=== PATIENT | male | born 1980 | race Caucasian/White ===

== ENCOUNTER → 2017-03-25 | Outpatient (CLI) | payer BC ==
--- NOTE | 2017-03-25 08:20 | DIAGNOSTIC IMAGING REPORT ---
ABDOMEN LIMITED (US) HISTORY: 36 years-old Male ELEVATED LFT'S COMPARISON: None available TECHNIQUE: Multiple real-time sonographic images of the abdominal right upper quadrant were obtained assessing grayscale appearance and color flow FINDINGS: The imaged pancreas is unremarkable with the majority of the pancreatic body and tail obscured by bowel gas. Increased echogenicity with poor through transmission of the liver suggests fatty infiltration. No focal hepatic mass lesion or intrahepatic biliary ductal dilation identified. Common bile duct is normal, 3 mm. Ill-defined area of decreased echogenicity, 1.7 cm is seen adjacent to the shimon hepatis suggesting areas of fatty sparing. Gallbladder is within normal limits without wall thickening, shadowing cholelithiasis or pericholecystic fluid. The right kidney demonstrates no hydronephrosis. Mild prominence of the renal pelvis is likely physiologic. IMPRESSION: 1. Increased echogenicity of the liver suggests hepatic steatosis. 2. No biliary ductal dilation. 3. No cholelithiasis or sonographic evidence of acute cholecystitis. The above report was generated using voice recognition software. It may contain grammatical, syntax or spelling errors. Electronically signed by: Ganesh Curtis M.D. 03/25/2017 8:19 AM Dictated Date/Time: 03/25/2017 8:15 AM
== END | disposition home or self-care (01) ==
LOC: C.ULTRBC 07:54
PROVIDERS: ATTEND Family Medicine
DX: R79.89 Other specified abnormal findings of blood chemistry (principal)

== ENCOUNTER 2018-05-15 17:44 | Observation (INO) ==
[2018-05-15] MEDS ORDERED: MoRPHine SULFATE 4 MG/ML 1 ML CARP\\VIAL IV STA (18:51)
[2018-05-15] MEDS ORDERED: SODIUM CHLORIDE 0.9% 1000ML 1,000 ML IV SCH ×2 (19:00→23:45)
[2018-05-15 19:54] LABS: Basophils # (auto) 0.01 K/uL (0-0.2); Basophils % (auto) 0.1 %; Eosinophils # (auto) 0.04 K/uL (0-0.5); Eosinophils % (auto) 0.5 %; Hematocrit (blood only) 41.7 % (42-52); Hemoglobin 15.1 g/dL (14.0-18.0); Immature Granulocytes # (auto) 0.02 K/uL (0.00-0.02); Immature Granulocytes % (auto) 0.3 %; Lymphocytes # (auto) 1.48 K/uL (1.2-3.4); Lymphocytes % (auto) 19.9 %; Mean Corpuscular Hgb Conc 36.2 g/dL (32-36); Mean Corpuscular Volume 88.2 fL (80-100); Mean Platelet Volume 10.2 fL (7.4-10.4); Monocytes # (auto) 0.53 K/uL (0.11-0.59); Monocytes % (auto) 7.1 %; Neutrophils # (auto) 5.34 K/uL (1.4-6.5); Neutrophils % (auto) 72.1 %; Platelet Count 161 K/uL (130-400); RDW Coefficient of Variation 13.1 % (11.5-14.5); RDW Standard Deviation 42.1 fL (36.4-46.3); Red Blood Count 4.73 M/uL (4.7-6.1); White Blood Count 7.42 K/uL (4.8-10.8)
[2018-05-15 20:07] LABS: iSTAT Creatinine 0.8 mg/dl (0.6-1.3); iSTAT Hemoglobin 14.6 g/dl (14.0-18.0); iSTAT Ionized Calcium 1.2 mmol/l (1.12-1.32); iSTAT Potassium 3.9 mEq/L (3.3-5.0)
[2018-05-15 20:10] LABS: Appearance Urine Clear (Clear); Bilirubin Urine Negative (Negative); Blood Urine Negative (Negative); Color Urine Yellow; Glucose Urine UA 3+ (Negative); Ketones Urine Trace (Negative); Leukocyte Esterase Urine Negative (Negative); Nitrite Urine Negative (Negative); Protein Urine Negative (Negative); Specific Gravity Urine 1.036 (1.000-1.030); Urobilinogen Urine Negative (Negative)
[2018-05-15 20:12] LABS: Albumin Globulin Ratio 1.1 (0.9-2); Albumin Level 4.2 gm/dl (3.4-5.0); Bilirubin,Total 0.7 mg/dl (0.2-1); Calcium 8.8 mg/dl (8.5-10.1); Creatinine Clr Calc Pharmacy 123.4 ml/min; Est GFR (African American) 98.2; Est GFR (Non-African American) 84.7; Globulin 3.9 gm/dl (2.5-4.0); Potassium 3.8 mmol/L (3.5-5.1); Total Protein 8.1 gm/dl (6.4-8.2)
[2018-05-15 20:27] LABS: Beta-Hydroxybutyrate 1.57 mg/dl (0.2-2.81)
[2018-05-15] MEDS ORDERED: IOVERSOL 100ml IV PRN (20:36)
[2018-05-15] MEDS ORDERED: NovoLIN-R INSULIN PER UNIT CHARGE IV STA (20:58)
--- NOTE | 2018-05-15 21:04 | CT Scan Report ---
CT pelvis w/IV con only CLINICAL HISTORY: rectal abscess COMPARISON STUDY: No previous studies for comparison. TECHNIQUE: Axial images of the pelvis were obtained following intravenous injection of 93 cc of Optir ay 320 IV. Study was performed utilizing automated exposure control for dose reduction. Study was per formed utilizing ALARA principles. FINDINGS: Caliber of visualized small and large bowel are normal. The appendix is normal. There is no pelvic lymphadenopathy. No suspicious lesions are identified within visualized skeletal structures. Note is made of grade one anterolisthesis of L5 on S1 due to bilateral L5 pars defects. Note is made of a midline posterior perianal fluid collection measures 2.4 x 1.1 cm. There is mild adjacent infilt ration. There is no soft tissue gas. No additional fluid collections are present. IMPRESSION: Midline posterior perianal fluid collection, measuring 2.4 x 1.1 cm, consistent with a s mall perianal abscess with mild associated cellulitis. Electronically signed by: Lazarus Rivas M.D. 05/15/2018 9:03 PM
[2018-05-15] MEDS ORDERED: BACITRACIN OINT 15 GM TUBE ONE (22:07)
[2018-05-15] MEDS ORDERED: LIDOCAINE HCL 1% 20 ML VIAL ONE (22:08)
[2018-05-15] MEDS ORDERED: BUPIVACAINE 0.5 % 5 MG/1 ML MPF 30ML VIAL ONE (22:08)
[2018-05-15] MEDS ORDERED: metroNIDAZOLE 500 MG/100 ML BAG IV STA ×2 (22:10→22:11)
[2018-05-15] MEDS ORDERED: cefTRIAXone SODIUM 1,000 MG/50 ML BAG IV STA (22:11)
--- NOTE | 2018-05-15 22:11 | Emergency Department Note ---
Entered by Aaron Rojas acting as a scribe for Edin Amaral DO History of Present Illness General Chief complaint: Infection, Wound Stated complaint: ABSCESS ON CENTER OF BUTTOCKS Source: patient History of Present Illness Onset (ago): day(s) 3 Location: buttocks (near rectum) Pain Consistency: + constant Maximum Pain Intensity: 5 Quality: + other (boil) Exacerbated By: + other (sitting) Associated symptoms: no fever/chills and no nausea/vomiting The patient is a 37 year old male who presents to the Emergency Room with complaints of a boil located near the rectum beginning three days ago. The patient reports that the boil is now the size of a golf ball. He rates his pain as constant at 5/10 and states that it is exacerbated with sitting. He denies fevers, nausea, vomiting, diarrhea, or other symptoms. He reports that he recently had a fistulotomy performed in [place], and he had a follow up with Dr. [facility] last week and was fine at the time. He states that the current boil is in a different spot from his recent fistulotomy. No other exacerbating or remitting factors. Home Medications Home Medications Medication Instructions Recorded Confirmed Type allopurinol 300 mg PO DAILY 05/15/18 05/15/18 History atorvastatin 10 mg PO DAILY 05/15/18 05/15/18 History cholecalciferol (vitamin D3) 1 dose PO DAILY 05/15/18 05/15/18 History [Vitamin D3] levothyroxine 125 mcg PO DAILY 05/15/18 05/15/18 History losartan 50 mg PO DAILY 05/15/18 05/15/18 History metformin 1,000 mg PO QAM 05/15/18 05/15/18 History metformin 500 mg PO QPM 05/15/18 05/15/18 History sertraline 50 mg PO DAILY 05/15/18 05/15/18 History vitamin E 400 units PO DAILY 05/15/18 05/15/18 History Allergies Allergy/AdvReac Type Severity Reaction Status Date / Time No Known Allergies Allergy Verified 05/15/18 21:24 Past Med/Surg History Medical History Fistula Social History Preferred Language: Georgian Feels Safe at Home: Yes Smoking Status: Current some day smoker Review of Systems See HPI for pertinent positives & negatives. and A total of 10 systems reviewed and were otherwise negative Physical Exam Vital Signs Vital Signs - 24 hr 05/15/18 18:07 05/15/18 19:48 05/15/18 19:52 Temperature 37.1 C Temperature Source Oral Sepsis Recent Fever Within 48 Hours No Sepsis New/Unexplained Change in Mental Status No Sepsis Action Taken by Nursing No Action Required Pulse Rate 80 80 Pulse Rate [Apical] 87 Pulse Rate from SpO2 Sensor Pulse Rhythm Regular Regular Pulse Rhythm [Apical] Regular Pulse Strength Normal Pulse Strength [Apical] Normal Respiratory Rate 20 19 19 Respiratory Effort / Characteristics Non-Labored Spontaneous Non-Labored Spontaneous Respiratory Depth Normal Normal Respiratory Pattern Regular Regular Blood Pressure 150/89 H Blood Pressure [Left Arm] 141/68 H Blood Pressure Mean 109 Blood Pressure Mean [Left Arm] 92 Blood Pressure Position Sitting Blood Pressure Position [Left Arm] Lying Pulse Oximetry 99 98 98 Oxygen Delivery Method Room Air Room Air Room Air 05/15/18 21:01 Temperature Temperature Source Sepsis Recent Fever Within 48 Hours Sepsis New/Unexplained Change in Mental Status Sepsis Action Taken by Nursing Pulse Rate 89 Pulse Rate [Apical] Pulse Rate from SpO2 Sensor 90 Pulse Rhythm Pulse Rhythm [Apical] Pulse Strength Pulse Strength [Apical] Respiratory Rate 17 Respiratory Effort / Characteristics Respiratory Depth Respiratory Pattern Blood Pressure 117/49 L Blood Pressure [Left Arm] Blood Pressure Mean 71 Blood Pressure Mean [Left Arm] Blood Pressure Position Blood Pressure Position [Left Arm] Pulse Oximetry 95 Oxygen Delivery Method Room Air GENERAL: Lying on right side in bed, alert, well appearing, well nourished, no distress, non-toxic EYE EXAM: normal conjunctiva. OROPHARYNX: no exudate, no erythema, lips, buccal mucosa, and tongue normal and mucous membranes are moist NECK: supple, no nuchal rigidity, no adenopathy, non-tender LUNGS: Clear to auscultation. Normal chest wall mechanics HEART: no murmurs, S1 normal and S2 normal ABDOMEN: abdomen soft, non-tender, normo-active bowel, sounds, no masses, no rebound or guarding. BACK: Back is symmetrical on inspection and there is no deformity, no midline tenderness, no CVA tenderness. RECTAL: There is a 4 cm mass at the 1 o'clock position with fluctuance, erythema and tenderness tracking to the anus. Fistulotomy scars noted at the 7 o'clock position. SKIN: no rashes and no bruising UPPER EXTREMITIES: upper extremities are grossly normal. LOWER EXTREMITIES: No pitting edema. NEURO EXAM: Normal sensorium, cranial nerves II-XII grossly intact, normal speech, no gross weakness of arms, no gross weakness of legs. Gross sensation intact. Course ED COURSE: Vital signs were reviewed and showed hypertension The patients medical record was reviewed The above diagnostic studies were performed and reviewed. ED treatments and interventions as stated above. 1838: The patient was evaluated in room A12A. A complete history and physical examination was performed. 2118: I consulted Dr. Munoz General Surgery. He will evaluate the patient. 2149: Dr. Munoz has evaluated the patient and will take him to the OR. The patient remained stable while under my care. Consultations Consultation #1: I consulted Dr. Munoz General Surgery. He will evaluate the p atient. Time: 21:19 Administered Medications Ioversol (Optiray 320 100ml) 93 ml IV ONCE PRN PRN Reason: Interaction Checking Stop: 05/19/18 20:35 Last Admin: 05/15/18 20:36 Dose: 93 ml Documented by: [id number] Discontinued Medications Sodium Chloride (Nss 1000ml) 1,000 mls @ 999 mls/hr IV .[id number] [id number] Stop: 05/15/18 20:00 Last Infusion: 05/15/18 20:51 Dose: 0 mls/hr Documented by: [id number] Admin: 05/15/18 19:47 Dose: 999 mls/hr Documented by: [id number] Insulin Human Regular (Novolin R U-100 Per Unit) 3 units IV NOW STA Stop: 05/15/18 20:59 Last Admin: 05/15/18 21:18 Dose: 3 units Documented by: [id number] Cosigned by: [id number] Morphine Sulfate (Morphine Sulfate) 4 mg IV NOW STA Stop: 05/15/18 18:52 Last Admin: 05/15/18 19:47 Dose: 4 mg Documented by: [id number] Medical Decision Making Differential Diagnosis Differential diagnosis: Etiologies such as cellulitis, abscess, MRSA infection, DVT, necrotizing fasciitis, dermatitis, drug eruption, as well as others were entertained. Medical Records Attestation: I reviewed the patient's medical records. Home Medications Current Medication List: was personally reviewed by me Laboratory Data Attestation: I reviewed the patient's lab results. Result diagrams: 05/15/18 19:35 05/15/18 19:35 Lab Results 05/15/18 05/15/18 05/15/18 Range/Units 19:35 19:35 19:42 WBC 7.42 (4.8-10.8) K/uL RBC 4.73 (4.7-6.1) M/uL Hgb 15.1 (14.0-18.0) g/dL POC Hgb 14.6 (14.0-18.0) g/dl Hct 41.7 L (42-52) % POC Hct 43 (42-52) % MCV 88.2 (80-100) fL MCH 31.9 (25-34) pg MCHC 36.2 H (32-36) g/dL RDW Std Deviation 42.1 (36.4-46.3) fL RDW Coeff of [place] 13.1 (11.5-14.5) % Plt Count 161 (130-400) K/uL MPV 10.2 (7.4-10.4) fL Immature Gran % (Auto) 0.3 % Neut % (Auto) 72.1 % Lymph % (Auto) 19.9 % [place] % (Auto) 7.1 % Eos % (Auto) 0.5 % Baso % (Auto) 0.1 % Immature Gran # (Auto) 0.02 (0.00-0.02) K/uL Neut # (Auto) 5.34 (1.4-6.5) K/uL Lymph # (Auto) 1.48 (1.2-3.4) K/uL [place] # (Auto) 0.53 (0.11-0.59) K/uL Eos # (Auto) 0.04 (0-0.5) K/uL Baso # (Auto) 0.01 (0-0.2) K/uL POC Sodium 137 (135-144) mEq/L Sodium 133 L (136-145) mmol/L POC Potassium 3.9 (3.3-5.0) mEq/L Potassium 3.8 (3.5-5.1) mmol/L POC Chloride 100 L (101-112) mEq/L Chloride 102 (98-107) mmol/L Carbon Dioxide 28 (21-32) mmol/L POC Total CO2 24 (24-31) mEq/l Anion Gap 3.0 (3-11) POC Anion Gap 18.0 (16-25) mmol/L POC BUN 15 (7-18) mg/dl BUN 14 (7-18) mg/dl Creatinine 1.10 (0.6-1.4) mg/dl POC Creatinine 0.8 (0.6-1.3) mg/dl Est Cr Clr Drug Dosing 123.4 ml/min Est GFR ( Amer) 98.2 Est GFR (Non-Af Amer) 84.7 BUN/Creatinine Ratio 13.0 (10-20) Glucose 364 H* (70-99) mg/dl POC Glucose (70-99) POC Glucose (other) 357 H* (70-99) mg/dl Calcium 8.8 (8.5-10.1) mg/dl POC Ioniz Calcium [place] 1.20 (1.12-1.32) mmol/l Total Bilirubin 0.7 (0.2-1) mg/dl AST 16 (15-37) U/L ALT 54 (12-78) U/L Alkaline Phosphatase 136 H (45-117) U/L Total Protein 8.1 (6.4-8.2) gm/dl Albumin 4.2 (3.4-5.0) gm/dl Globulin 3.9 (2.5-4.0) gm/dl Albumin/Globulin Ratio 1.1 (0.9-2) Lipase 140 (73-393) U/L Beta-Hydroxybutyric Acd 1.57 (0.2-2.81) mg/dl Urine Color Urine Appearance (Clear) Urine pH (4.5-7.5) POC Urine pH (4.5-7.5) Ur Specific [place] (1.000-1.030) Urine Protein (Negative) POC Urine Protein (Negative) Urine Glucose (UA) (Negative) POC Ur Glucose (UA) (Normal) Urine Ketones (Negative) POC Urine Ketones (Negative) Urine Blood (Negative) POC Urine Blood (Negative) Urine Nitrite (Negative) POC Urine Nitrite (Negative) Urine Bilirubin (Negative) POC Urine Bilirubin (Negative) Urine Urobilinogen (Negative) POC Urine Urobilinogen (Normal) Ur Leukocyte Esterase (Negative) POC U Leukocyte Esteras (Negative) 05/15/18 05/15/18 05/15/18 Range/Units 19:53 19:53 20:54 WBC (4.8-10.8) K/uL RBC (4.7-6.1) M/uL Hgb (14.0-18.0) g/dL POC Hgb (14.0-18.0) g/dl Hct (42-52) % POC Hct (42-52) % MCV (80-100) fL MCH (25-34) pg MCHC (32-36) g/dL RDW Std Deviation (36.4-46.3) fL RDW Coeff of Mahi (11.5-14.5) % Plt Count (130-400) K/uL MPV (7.4-10.4) fL Immature Gran % (Auto) % Neut % (Auto) % Lymph % (Auto) % [place] % (Auto) % Eos % (Auto) % Baso % (Auto) % Immature Gran # (Auto) (0.00-0.02) K/uL Neut # (Auto) (1.4-6.5) K/uL Lymph # (Auto) (1.2-3.4) K/uL [place] # (Auto) (0.11-0.59) K/uL Eos # (Auto) (0-0.5) K/uL Baso # (Auto) (0-0.2) K/uL POC Sodium (135-144) mEq/L Sodium (136-145) mmol/L POC Potassium (3.3-5.0) mEq/L Potassium (3.5-5.1) mmol/L POC Chloride (101-112) mEq/L Chloride (98-107) mmol/L Carbon Dioxide (21-32) mmol/L POC Total CO2 (24-31) mEq/l Anion Gap (3-11) POC Anion Gap (16-25) mmol/L POC BUN (7-18) mg/dl BUN (7-18) mg/dl Creatinine (0.6-1.4) mg/dl POC Creatinine (0.6-1.3) mg/dl Est Cr Clr Drug Dosing ml/min Est GFR ( Amer) Est GFR (Non-Af Amer) BUN/Creatinine Ratio (10-20) Glucose (70-99) mg/dl POC Glucose 277 H (70-99) POC Glucose (other) (70-99) mg/dl Calcium (8.5-10.1) mg/dl POC Ioniz Calcium [place] (1.12-1.32) mmol/l Total Bilirubin (0.2-1) mg/dl AST (15-37) U/L ALT (12-78) U/L Alkaline Phosphatase (45-117) U/L Total Protein (6.4-8.2) gm/dl Albumin (3.4-5.0) gm/dl Globulin (2.5-4.0) gm/dl Albumin/Globulin Ratio (0.9-2) Lipase (73-393) U/L Beta-Hydroxybutyric Acd (0.2-2.81) mg/dl Urine Color Yellow Urine Appearance Clear (Clear) Urine pH 5.0 (4.5-7.5) POC Urine pH 5 (4.5-7.5) Ur Specific [place] 1.036 H (1.000-1.030) Urine Protein Negative (Negative) POC Urine Protein Negative (Negative) Urine Glucose (UA) 3+ H (Negative) POC Ur Glucose (UA) 1000 H (Normal) Urine Ketones Trace H (Negative) POC Urine Ketones Negative (Negative) Urine Blood Negative (Negative) POC Urine Blood Negative (Negative) Urine Nitrite Negative (Negative) POC Urine Nitrite Negative (Negative) Urine Bilirubin Negative (Negative) POC Urine Bilirubin Negative (Negative) Urine Urobilinogen Negative (Negative) POC Urine Urobilinogen Normal (Normal) Ur Leukocyte Esterase Negative (Negative) POC U Leukocyte Esteras Negative (Negative) 05/15/18 Range/Units 21:36 WBC (4.8-10.8) K/uL RBC (4.7-6.1) M/uL Hgb (14.0-18.0) g/dL POC Hgb (14.0-18.0) g/dl Hct (42-52) % POC Hct (42-52) % MCV (80-100) fL MCH (25-34) pg MCHC (32-36) g/dL RDW Std Deviation (36.4-46.3) fL RDW Coeff of Mahi (11.5-14.5) % Plt Count (130-400) K/uL MPV (7.4-10.4) fL Immature Gran % (Auto) % Neut % (Auto) % Lymph % (Auto) % [place] % (Auto) % Eos % (Auto) % Baso % (Auto) % Immature Gran # (Auto) (0.00-0.02) K/uL Neut # (Auto) (1.4-6.5) K/uL Lymph # (Auto) (1.2-3.4) K/uL [place] # (Auto) (0.11-0.59) K/uL Eos # (Auto) (0-0.5) K/uL Baso # (Auto) (0-0.2) K/uL POC Sodium (135-144) mEq/L Sodium (136-145) mmol/L POC Potassium (3.3-5.0) mEq/L Potassium (3.5-5.1) mmol/L POC Chloride (101-112) mEq/L Chloride (98-107) mmol/L Carbon Dioxide (21-32) mmol/L POC Total CO2 (24-31) mEq/l Anion Gap (3-11) POC Anion Gap (16-25) mmol/L POC BUN (7-18) mg/dl BUN (7-18) mg/dl Creatinine (0.6-1.4) mg/dl POC Creatinine (0.6-1.3) mg/dl Est Cr Clr Drug Dosing ml/min Est GFR ( Amer) Est GFR (Non-Af Amer) BUN/Creatinine Ratio (10-20) Glucose (70-99) mg/dl POC Glucose 265 H (70-99) POC Glucose (other) (70-99) mg/dl Calcium (8.5-10.1) mg/dl POC Ioniz Calcium [place] (1.12-1.32) mmol/l Total Bilirubin (0.2-1) mg/dl AST (15-37) U/L ALT (12-78) U/L Alkaline Phosphatase (45-117) U/L Total Protein (6.4-8.2) gm/dl Albumin (3.4-5.0) gm/dl Globulin (2.5-4.0) gm/dl Albumin/Globulin Ratio (0.9-2) Lipase (73-393) U/L Beta-Hydroxybutyric Acd (0.2-2.81) mg/dl Urine Color Urine Appearance (Clear) Urine pH (4.5-7.5) POC Urine pH (4.5-7.5) Ur Specific [place] (1.000-1.030) Urine Protein (Negative) POC Urine Protein (Negative) Urine Glucose (UA) (Negative) POC Ur Glucose (UA) (Normal) Urine Ketones (Negative) POC Urine Ketones (Negative) Urine Blood (Negative) POC Urine Blood (Negative) Urine Nitrite (Negative) POC Urine Nitrite (Negative) Urine Bilirubin (Negative) POC Urine Bilirubin (Negative) Urine Urobilinogen (Negative) POC Urine Urobilinogen (Normal) Ur Leukocyte Esterase (Negative) POC U Leukocyte Esteras (Negative) Imaging Data Radiologist's Impression: Radiology results as stated below per my review and the radiologist's interpretation: CT pelvis w/IV con only CLINICAL HISTORY: rectal abscess COMPARISON STUDY: No previous studies for comparison. TECHNIQUE: Axial images of the pelvis were obtained following intravenous injection of 93 cc of Optiray 320 IV. Study was performed utilizing automated exposure control for dose reduction. Study was performed utilizing ALARA principles. FINDINGS: Caliber of visualized small and large bowel are normal. The appendix is normal. There is no pelvic lymphadenopathy. No suspicious lesions are identified within visualized skeletal structures. Note is made of grade one anterolisthesis of L5 on S1 due to bilateral L5 pars defects. Note is made of a midline posterior perianal fluid collection measures 2.4 x 1.1 cm. There is mild adjacent infiltration. There is no soft tissue gas. No additional fluid collections are present. IMPRESSION: Midline posterior perianal fluid collection, measuring 2.4 x 1.1 cm, consistent with a small perianal abscess with mild associated cellulitis. Electronically signed by: Lazarus Rivas M.D. 05/15/2018 9:03 PM Blood Pressure Blood Pressure Findings: Elevated blood pressure Additional Comments: further management by Surgery MDM Narrative Patient is a 37-year-old male who presents the ER for pain at his rectum. Past medical history of perianal abscess and fistulotomy. This was most recently performed within the past month. Labs show no significant leukocytosis or anemia. BMP shows a mild hyponatremia. Creatinine was unremarkable. Glucose was elevated at 360. He was given IV insulin and IV fluids. Blood sugars trending down to 260. Transaminitis was unremarkable. Lipase was normal. UA was unremarkable. Patient was given IV fluids and morphine along with IV antibiotics. CT abdomen pelvis was unremarkable. Patient was updated bedside. Patient was discussed with general surgery and will be taken to the OR. Impression & Plan Perianal abscess Discharge Plan Visit Data Chief Complaint: Infection, Wound Stated Complaint: ABSCESS ON CENTER OF BUTTOCKS ED Provider: Edin Amaral Discharge Problem: Perianal abscess Patient Disposition: Being Evaluated by Surgeon Forms Stand Alone Forms: My [facility] Prescriptions Prescriptions: No Action losartan 50 mg tablet 50 mg PO DAILY RF: 0 atorvastatin 10 mg tablet 10 mg PO DAILY RF: 0 levothyroxine 125 mcg tablet 125 mcg PO DAILY RF: 0 allopurinol 300 mg tablet 300 mg PO DAILY RF: 0 metformin 500 mg tablet extended release 24 hr 1,000 mg PO QAM RF: 0 metformin 500 mg tablet extended release 24 hr 500 mg PO QPM RF: 0 sertraline 50 mg tablet 50 mg PO DAILY RF: 0 vitamin E 400 unit Capsule 400 units PO DAILY RF: 0 cholecalciferol (vitamin D3) [Vitamin D3] 1,000 unit Capsule 1 dose PO DAILY RF: 0 Referrals Referrals: Nabil Arizmendi [Primary Care Provider] - The scribe's documentation has been prepared under my direction and personally reviewed by me in its entirety. I confirm that the note above accurately reflects all work, treatment, procedures, and medical decision making performed by me.
[2018-05-15] MEDS ORDERED: CIPROFLOXACIN 400 MG/200 ML BAG IV STA (22:12)
--- NOTE | 2018-05-15 22:18 | Surgery Consultation ---
Date of Consultation May 15, 2018 Assessment & Plan (1) Perianal abscess: pt is a 37 year old male who presents to ER with rectal pain, IMP: tyson-anal abscess, DM Plan, I recommend to do I/D tyson-anal abscess, D/W benefits, risks and alternatives of the surgery, the risks - infection, bleeding, sepsis, recurrence, pt understood, he agrees with the surgery, I answered all questions, History of Present Illness History of Present Illness CC: rectal pain pt is a 37 year old male who presents to ER with 3 days history rectal pain, pt denies rectal bleeding, or abdominal pain, no fever, pt had anal fistulotomy by colorectal surgeon one month ago, pt had CT scan at ER today dx tyson-rectal abscess, Allergies Allergy/AdvReac Type Severity Reaction Status Date / Time No Known Allergies Allergy Verified 05/15/18 21:24 Home Medications Home Medications Medication Instructions Recorded Confirmed Type allopurinol 300 mg PO DAILY 05/15/18 05/15/18 History atorvastatin 10 mg PO DAILY 05/15/18 05/15/18 History cholecalciferol (vitamin D3) 1 dose PO DAILY 05/15/18 05/15/18 History [Vitamin D3] levothyroxine 125 mcg PO DAILY 05/15/18 05/15/18 History losartan 50 mg PO DAILY 05/15/18 05/15/18 History metformin 1,000 mg PO QAM 05/15/18 05/15/18 History metformin 500 mg PO QPM 05/15/18 05/15/18 History sertraline 50 mg PO DAILY 05/15/18 05/15/18 History vitamin E 400 units PO DAILY 05/15/18 05/15/18 History Patient History Medical History Fistula Social History Preferred Language: Urdu Feels Safe at Home: Yes Smoking Status: Current some day smoker Review of Systems Constitutional: as per Subjective / HPI Ear, Nose, Mouth, Throat: as per Subjective / HPI Respiratory: as per Subjective / HPI Cardiovascular: as per Subjective / HPI Gastrointestinal: as per Subjective / HPI Musculoskeletal: as per Subjective / HPI Integumentary: as per Subjective / HPI Neurologic: as per Subjective / HPI Psychiatric: as per Subjective / HPI DM, Hypothyroidism Hematologic / Lymphatic: as per Subjective / HPI Physical Exam Vital Signs (Past 24 Hours): Last Vital Signs Temp 37.1 C 05/15/18 18:07 Pulse 95 H 05/15/18 22:00 Resp 27 H 05/15/18 22:00 BP 128/77 05/15/18 22:00 Pulse Ox 94 05/15/18 22:00 Constitutional: WD/WN, vitals as above well developed and well nourished Neck: trachea midline, no thyromegaly Respiratory: normal respiratory effort, lungs clear to auscultation normal respiratory effort Cardiovascular: RRR, no murmur, no edema Rate/Rhythm: regular rate and regular rhythm Heart Sounds: normal S1 and normal S2 Gastrointestinal (Abdomen): Percussion/Palpation: abdomen soft NT, ND on abdomen, rectal exam- tyson-rectal abscess at 12 O'clock, some drainage with pus, tenderness, redness, Musculoskeletal: no cyanosis or clubbing, extremities motor strength 5/5 Neurologic: awake Psychiatric: Orientation: alert and oriented x 3 Results & Data Laboratory Results Abnormal lab results 05/15/18 05/15/18 05/15/18 Range/Units 19:35 19:35 19:42 Hct 41.7 L (42-52) % MCHC 36.2 H (32-36) g/dL Sodium 133 L (136-145) mmol/L POC Chloride 100 L (101-112) mEq/L Glucose 364 H* (70-99) mg/dl POC Glucose (70-99) POC Glucose (other) 357 H* (70-99) mg/dl Alkaline Phosphatase 136 H (45-117) U/L Ur Specific [place] (1.000-1.030) Urine Glucose (UA) (Negative) POC Ur Glucose (UA) (Normal) Urine Ketones (Negative) 05/15/18 05/15/18 05/15/18 Range/Units 19:53 19:53 20:54 Hct (42-52) % MCHC (32-36) g/dL Sodium (136-145) mmol/L POC Chloride (101-112) mEq/L Glucose (70-99) mg/dl POC Glucose 277 H (70-99) POC Glucose (other) (70-99) mg/dl Alkaline Phosphatase (45-117) U/L Ur Specific [place] 1.036 H (1.000-1.030) Urine Glucose (UA) 3+ H (Negative) POC Ur Glucose (UA) 1000 H (Normal) Urine Ketones Trace H (Negative) 05/15/18 Range/Units 21:36 Hct (42-52) % MCHC (32-36) g/dL Sodium (136-145) mmol/L POC Chloride (101-112) mEq/L Glucose (70-99) mg/dl POC Glucose 265 H (70-99) POC Glucose (other) (70-99) mg/dl Alkaline Phosphatase (45-117) U/L Ur Specific [place] (1.000-1.030) Urine Glucose (UA) (Negative) POC Ur Glucose (UA) (Normal) Urine Ketones (Negative) Diagnostic Findings CT pelvis w/IV con only CLINICAL HISTORY: rectal abscess COMPARISON STUDY: No previous studies for comparison. TECHNIQUE: Axial images of the pelvis were obtained following intravenous injection of 93 cc of Optiray 320 IV. Study was performed utilizing automated exposure control for dose reduction. Study was performed utilizing ALARA principles. FINDINGS: Caliber of visualized small and large bowel are normal. The appendix is normal. There is no pelvic lymphadenopathy. No suspicious lesions are identified within visualized skeletal structures. Note is made of grade one anterolisthesis of L5 on S1 due to bilateral L5 pars defects. Note is made of a midline posterior perianal fluid collection measures 2.4 x 1.1 cm. There is mild adjacent infiltration. There is no soft tissue gas. No additional fluid collections are present. IMPRESSION: Midline posterior perianal fluid collection, measuring 2.4 x 1.1 cm, consistent with a small perianal abscess with mild associated cellulitis.
[2018-05-15] MEDS ORDERED: ONDANSETRON INJ 2 MG/ML 2 ML VIAL IV PRN ×2 (22:31→23:40)
[2018-05-15] MEDS ORDERED: ePHEDrine sulfate 50 MG/ML AMP IV PRN (22:31)
[2018-05-15] MEDS ORDERED: HYDROmorphone INJ 2 MG/ML SYR/VIAL IV PRN (22:31)
[2018-05-15] MEDS ORDERED: PROMETHAZINE HCL 6.25 MG in SODIUM CHLORIDE 0.9% 50 ML IV PRN (22:31)
[2018-05-15] MEDS ORDERED: fentaNYL citrate 100 MCG/2 ML VIAL IV PRN (22:31)
[2018-05-15] MEDS ORDERED: ATROPINE SULFATE 0.1 MG/ML 10ML SYR IV PRN (22:31)
[2018-05-15] MEDS ORDERED: PROPOFOL IV EMULSION 10 MG/ML 20 ML VIAL IV ONE (22:33)
[2018-05-15] MEDS ORDERED: SUCCINYLCHOLINE CHLORIDE 20 MG/ML 10 ML VIAL ONE (22:33)
[2018-05-15] MEDS ORDERED: ONDANSETRON INJ 2 MG/ML 2 ML VIAL ONE (22:33)
[2018-05-15] MEDS ORDERED: KETOROLAC 30 MG/ML VIAL ONE (22:33)
[2018-05-15] MEDS ORDERED: ROCURONIUM BROMIDE 10 MG/ML 5 ML VIAL ONE (22:33)
[2018-05-15] MEDS ORDERED: LIDOCAINE HCL 2% 2 ML VIAL/AMP(20MG/ML) INFIL ONE (22:33)
[2018-05-15] MEDS ORDERED: fentaNYL citrate 100 MCG/2 ML VIAL ONE (22:33)
--- NOTE | 2018-05-15 23:34 | Post Operative Brief Note ---
Immediate Post Op Note v1 Date of Surgery May 15, 2018 Pre & Post Diagnosis Operation Date: 05/15/18 22:05 pre-op diagnosis- tyson-anal abscess post-op diagnosis- tyson-anal abscess Procedure Operation Date: 05/15/18 22:05 incision and drainage tyson- anal abscess Surgeon Mik Munoz MD Channel Development Manager surgical services director Estimated Blood Loss 5 Findings Consistent with Post-Op Diagnosis tyson-anal abscess, wound culture sent Fluids 600ml Specimens wound culture Anesthesia Type General Complications none Disposition Accompanied Patient To Recovery: Yes Disposition: Recovery Room Overlapping Procedure I was immediately available: during the entire case.
[2018-05-15] MEDS ORDERED: OXYCODONE/ACETAMINOPHEN 5mg/325mg TAB PO PRN (23:46)
[2018-05-15] MEDS ORDERED: HYDROmorphone INJ 0.5 MG/0.5 ML SYR IV PRN (23:46)
--- NOTE | 2018-05-15 23:56 | Anesthesiology Consultation ---
Date of Service May 15, 2018 HTN NIDDM Obesity Hypothyroidism Assessment & Plan (1) Encounter for pre-operative examination: Chart Review Chart Review: Acceptable Risk for Surgery and Patient NOT seen in Pre Admission Testing Consults Requested none ASA [id number] Proposed Anesthesia Anesthesia Type: General Risk / Benefits Reviewed With: PT / POA / Parent / Guardian, Accepts Plan and Informed Consent Obtained NPO Date Last Intake of Fluids: 05/15/18 Time Last Intake of Fluids: 17:00 Date Last Intake of Solids: 05/15/18 Time Last Intake of Solids: 12:30 History Surgery Operation Date: 05/15/18 22:05 Proposed Procedures p Rectal Surgery - Mik Munoz MD Height/Weight Height: 6 ft 1 in Weight: 119.6 kg Allergies Allergy/AdvReac Type Severity Reaction Status Date / Time No Known Allergies Allergy Verified 05/15/18 21:24 Medications Home Medications Medication Instructions Recorded Confirmed Last Taken allopurinol 300 mg PO DAILY 05/15/18 05/15/18 Unknown atorvastatin 10 mg PO DAILY 05/15/18 05/15/18 Unknown cholecalciferol (vitamin D3) 1 dose PO DAILY 05/15/18 05/15/18 Unknown [Vitamin D3] levothyroxine 125 mcg PO DAILY 05/15/18 05/15/18 Unknown losartan 50 mg PO DAILY 05/15/18 05/15/18 Unknown metformin 1,000 mg PO QAM 05/15/18 05/15/18 Unknown metformin 500 mg PO QPM 05/15/18 05/15/18 Unknown sertraline 50 mg PO DAILY 05/15/18 05/15/18 Unknown vitamin E 400 units PO DAILY 05/15/18 05/15/18 Unknown Active Medications Generic Name Dose Route Start Last Admin Trade Name Freq PRN Reason Stop Dose Admin Ciprofloxacin 400 mg in 200 mls @ 100 mls/hr 05/15/18 22:12 05/15/18 23:25 Cipro IV 05/16/18 00:11 100 mls/hr PREOP STA Administration Ioversol 93 ml 05/15/18 20:36 05/15/18 20:36 Optiray 320 100ml IV 05/19/18 20:35 93 ml ONCE PRN Administration Interaction Checking Past Medical History Medical History Fistula Social History Smoking Status: Current some day smoker Physical Exam Vital Signs Last Vital Signs Temp 37.1 C 05/15/18 18:07 Pulse 86 05/15/18 22:39 Resp 22 05/15/18 22:39 BP 118/93 05/15/18 22:39 Pulse Ox 96 05/15/18 22:39 ENMT Mouth: no TMJ abnormality Thyromental Distance: > or= 3.5 Finger Breadths Mallampati Class: II Neck normal visual inspection Respiratory normal respiratory effort Cardiovascular Rate/Rhythm: regular rate and regular rhythm Neurologic moves all extremities Psychiatric Orientation: alert Testing Laboratory Results 05/15/18 19:35 05/15/18 19:35 Urine Color Yellow 05/15/18 19:53 Urine Appearance Clear (Clear) 05/15/18 19:53 Urine pH 5.0 (4.5-7.5) 05/15/18 19:53 Ur Specific [place] 1.036 (1.000-1.030) H 05/15/18 19:53 Urine Protein Negative (Negative) 05/15/18 19:53 Urine Glucose (UA) 3+ (Negative) H 05/15/18 19:53 Urine Ketones Trace (Negative) H 05/15/18 19:53 Urine Nitrite Negative (Negative) 05/15/18 19:53 Ur Leukocyte Esterase Negative (Negative) 05/15/18 19:53 05/15/18 05/15/18 05/15/18 21:36 20:54 19:42 POC Glucose 265 H 277 H POC Glucose (other) 357 H*
--- NOTE | 2018-05-16 00:03 | Anesthesiology Progress Note ---
Date of Service May 16, 2018 Anesthesia Post Procedure Vital Signs Vital Signs: Temp Pulse Pulse Resp BP BP Pulse Ox 05/15/18 23:55 37.2 C 93 H 18 135/79 95 05/15/18 23:50 90 18 143/85 H 97 05/15/18 23:45 37.3 C 94 H 18 139/81 97 05/15/18 22:39 86 22 118/93 96 05/15/18 22:30 86 22 118/93 96 05/15/18 22:00 95 H 27 H 128/77 94 05/15/18 21:30 91 H 24 113/51 L 96 05/15/18 21:01 89 17 117/49 L 95 05/15/18 19:52 80 19 98 05/15/18 19:48 87 19 141/68 H 98 05/15/18 18:07 37.1 C 80 20 150/89 H 99 Pain Intensity Sacrum: Pain Intensity: 3 Notes Mental Status: alert / awake / arousable Patient Amnestic to Procedure: Yes Nausea / Vomiting: adequately controlled Pain: adequately controlled Airway Patency, RR, SpO2: stable & adequate BP & HR: stable & adequate Hydration State: stable & adequate Anesthetic Complications: no major complications apparent
--- NOTE | 2018-05-16 01:27 | Operative Report ---
DATE OF OPERATION: 05/15/2018 PREOPERATIVE DIAGNOSIS: Perianal abscess. POSTOPERATIVE DIAGNOSIS: Perianal abscess. PROCEDURE: I and D perianal abscess. SURGEON: Mik uMnoz MD. ANESTHESIA: General. ESTIMATED BLOOD LOSS: 5 mL. FINDINGS: Perianal abscess, packing the wound, wound culture sent. COMPLICATIONS: None. INDICATIONS FOR THE PROCEDURE: This is a 37-year-old gentleman who presented to the ED with 3 days history of rectal pain and the patient had a CT scan diagnosis of perianal abscess, so I recommended to do the I and D of perianal abscess. I did talk to the patient about the benefit and risk, alternate procedure. I indicated the risks may include but not limited such as bleeding, infection, recurrence, sepsis. The patient understands. He signed informed consent and I answered all questions. DETAILS OF PROCEDURE: We brought the patient to the OR, put the patient in the supine position. The patient received SCD on bilateral legs to prevent DVT. Also, patient received Cipro 400 mg IV and 500 mg of Flagyl IV for prophylactic antibiotic. The patient received general anesthesia without difficulty. Then we repositioned to lithotomy position and the patient's rectal area was appropriate draped in routine sterile fashion. After time out, did right rectal exam and found the patient had an abscess at 6 o'clock perianal abscess, size about 2 x 3 cm and then we made an incision on the abscess. There was pus that came out immediately. We sent the wound culture. Once we cleaned out the abscess, we did a packing the wound with quarter inch Kerlix. Then we put the dressing on. The patient tolerated the procedure well. All the instrument, needle and sponge count were correct x2 at the end of case. The patient transferred to recovery room in stable condition. After the procedure, I did talk to the patient's about OR finding and procedure we did and she understands. I attest to the content of the Intraoperative Record and any orders documented therein. Any exception s are noted below.
[2018-05-16] MEDS ORDERED: GLUCOSE 40% GEL 15 GM TUBE PO PRN (02:31)
[2018-05-16] MEDS ORDERED: DEXTROSE 50% 50 ML SYRINGE IV PRN (02:31)
[2018-05-16] MEDS ORDERED: CARBOHYDRATES FOR HYPOGLYCEMIA PO PRN (02:31)
[2018-05-16] MEDS ORDERED: GLUCOSE 10 TABS/TUBE PO PRN (02:31)
[2018-05-16] MEDS ORDERED: GLUCAGON FOR INJ 1 MG VIAL SQ PRN (02:31)
--- NOTE | 2018-05-16 02:31 | Internal Medicine Consult Note ---
Date of Consultation May 16, 2018 History of Present Illness Reason for Consultation: Medical Management Requesting Physician: Dr Dariel Munoz Attending Physician: Mik Munoz MD History of Present Illness 37-year-old male with a past medical history of diabetes, perianal fistula, obesity, hypertension, hyperlipidemia, hypothyroidism, gout, and melanoma. He came to the emergency room today with a perianal fistula and went to the OR with Dr. Munoz for I&D and packing. He was here previously for fistula surgery and the fistula recurred so he came to the emergency room tonight Dr. Munoz took him to surgery. I was consulted for medical management specifically for diabetes. Assessment and plan Perianal fistulastatus post I&D by Dr. Munoz Type 2 diabetescurrently uncontrolled on metformin as an outpatient, will place on sliding scale with Accu-Checks AC at bedtime Obesity with a BMI of 35 Hypertension Hyperlipidemia Hypothyroidism Gout History of melanoma Continue outpatient medications were appropriate, insulin sliding scale, likely to be discharged discharged later today, thanks for the consult. ROS-No Headache, No Visual Changes, No Nausea, No Vomiting, No Fever, No Chills, No Neck Pain or Stiffness, No Chest Pain, No Palpitations, No SOB, No MONROE, No Cough, No Sputum, No Wheezing, No Abdominal Pain, No Diarrhea, No Hematemesis, No Hemoptysis, No Unexpected Weight Loss, No Flank pain, No Melena, No Hematochezia, No Frequency, No Urgency, No Burning, No Hematuria, No Rashes, No Diaphoresis. Appetite is Normal, sore buttock Physical Exam Gen-AAO x 3, NAD, Afebrile, obese Head-NCAT, EOMI, PERRLA, Anicteric Sclera, No Posterior Pharyngeal Erythema Neck-Supple, No JVD, No Thyromegaly, No Masses, No LAD, No Bruits Lungs-Clear to Auscultation Bilaterally, No Rales, No Rhonchi, No Wheezing, No Crepitus Chest-No S4, +S1, +S2, No S3, No Murmurs, No Rubs, No Gallops, No Ectopy Abdomen-Soft, Bowel Sounds Present, Non Tender, Non Distended, No Hepatomegaly, No Splenomegaly, No Palpable Masses, No Rebound, No Rigidity, No Guarding Musculoskeletal-Full Range of Motion Bilaterally, No CVAT, abscess and anal crease packed Extremities-No Cyanosis, No Clubbing, No Edema Nuero-Cranial Nerves II-XII grossly intact, Motor WNL, DTRs WNL, Strength WNL, Non Focal Psych-Normal Mood Past medical historydiabetes, anal fistula, obesity, hypertension, hyperlipidemia, hypothyroidism, gout, melanoma Past surgical history-melanoma removal, tonsils and adenoids were removed, perianal fistula surgery, breast reduction surgery secondary to breast asymmetry Family historymother is alive with hyperlipidemia, father is alive and healthy, 2 healthy sisters, 2 healthy daughters Medications have been reviewed and reconciled Socially occasional alcohol, denies tobacco, he is , works as a carpenter [employer] Allergies Allergy/AdvReac Type Severity Reaction Status Date / Time No Known Allergies Allergy Verified 05/15/18 21:24 Home Medications Home Medications Medication Instructions Recorded Confirmed Type allopurinol 300 mg PO DAILY 05/15/18 05/15/18 History atorvastatin 10 mg PO DAILY 05/15/18 05/15/18 History cholecalciferol (vitamin D3) 1 dose PO DAILY 05/15/18 05/15/18 History [Vitamin D3] levothyroxine 125 mcg PO DAILY 05/15/18 05/15/18 History losartan 50 mg PO DAILY 05/15/18 05/15/18 History metformin 1,000 mg PO QAM 05/15/18 05/15/18 History metformin 500 mg PO QPM 05/15/18 05/15/18 History sertraline 50 mg PO DAILY 05/15/18 05/15/18 History vitamin E 400 units PO DAILY 05/15/18 05/15/18 History Patient History Medical History Fistula Social History Preferred Language: Nigerien Communication Ability: Effective Beliefs That Will Affect Care: None Current Living Situation: Family Feels Safe at Home: Yes Safety Concerns: Feels Safe At This Time Smoking Status: Never smoker Hx Alcohol Use: Yes Hx Substance Use: No Physical Exam Vital Signs (Past 24 Hours): Last Vital Signs Temp 37 C 05/16/18 01:35 Pulse 91 H 05/16/18 01:35 Resp 16 05/16/18 01:35 BP 111/57 L 05/16/18 01:35 Pulse Ox 91 05/16/18 01:35
[2018-05-16] MEDS ORDERED: INSULIN GLARGINE SOLOSTAR 100 UNITS/ML 3 ML PEN SC ONE (04:30)
[2018-05-16] MEDS ORDERED: PHARMACY GLYCEMIC MGMT CONSULT PRN (04:54)
[2018-05-16] MEDS: INSULIN ASPART 100 UNITS/ML 3 ML PEN SC SCH ×3 (04:58→13:38)
[2018-05-16 06:23] LABS: Basophils # (auto) 0.01 K/uL (0-0.2); Basophils % (auto) 0.2 %; Eosinophils # (auto) 0.05 K/uL (0-0.5); Eosinophils % (auto) 0.9 %; Hematocrit (blood only) 35.8 % (42-52); Hemoglobin 12.6 g/dL (14.0-18.0); Immature Granulocytes # (auto) 0.02 K/uL (0.00-0.02); Immature Granulocytes % (auto) 0.4 %; Lymphocytes % (auto) 29.5 %; Mean Corpuscular Hgb Conc 35.2 g/dL (32-36); Mean Corpuscular Volume 88.4 fL (80-100); Mean Platelet Volume 9.9 fL (7.4-10.4); Monocytes # (auto) 0.37 K/uL (0.11-0.59); Monocytes % (auto) 6.8 %; Neutrophils # (auto) 3.38 K/uL (1.4-6.5); Neutrophils % (auto) 62.2 %; Platelet Count 135 K/uL (130-400); RDW Coefficient of Variation 13.3 % (11.5-14.5); RDW Standard Deviation 42.8 fL (36.4-46.3); Red Blood Count 4.05 M/uL (4.7-6.1); White Blood Count 5.43 K/uL (4.8-10.8)
[2018-05-16] MEDS ORDERED: LEVOTHYROXINE SODIUM 125 MCG TABLET PO SCH (06:30)
[2018-05-16 06:41] LABS: Estimated Average Glucose 246 mg/dl; Hemoglobin A1C 10.2 % (4.5-5.6)
[2018-05-16 06:54] LABS: Albumin Level 3.2 gm/dl (3.4-5.0); BUN Creatinine Ratio 10.1 (10-20); Calcium 7.9 mg/dl (8.5-10.1); Creatinine Clr Calc Pharmacy 123.9 ml/min; Est GFR (African American) 98.2; Est GFR (Non-African American) 84.7; Potassium 3.8 mmol/L (3.5-5.1)
[2018-05-16 06:58] LABS: Bilirubin,Total 0.6 mg/dl (0.2-1); Globulin 3.1 gm/dl (2.5-4.0); Total Protein 6.3 gm/dl (6.4-8.2)
[2018-05-16 07:06] LABS: Beta-Hydroxybutyrate 1.03 mg/dl (0.2-2.81)
[2018-05-16 07:11] LABS: Prothrombin Time 10.3 Seconds (9.0-12.0)
[2018-05-16 08:05] VITALS: BP 118/60; PULSE 74; TEMP 98.6; O2SAT 95
[2018-05-16] MEDS ORDERED: ALLOPURINOL 300 MG TAB PO SCH (09:00)
[2018-05-16] MEDS ORDERED: ENOXAPARIN INJ 40 MG/0.4 ML SYR SQ SCH (09:00)
[2018-05-16] MEDS ORDERED: CHOLECALCIFEROL 1,000 UNITS TAB PO SCH (09:00)
[2018-05-16] MEDS ORDERED: LOSARTAN POTASSIUM 50 MG TAB PO SCH (09:00)
[2018-05-16] MEDS ORDERED: METFORMIN HCL ER 500 MG TABCR PO SCH ×2 (09:00→21:00)
[2018-05-16] MEDS ORDERED: TOCOPHERYL, DL-ALPHA 400 UNITS CAP PO SCH (09:00)
[2018-05-16] MEDS ORDERED: ATORVASTATIN 10 MG TAB PO SCH (09:00)
[2018-05-16] MEDS ORDERED: SERTRALINE HCL 50 MG TABLET PO SCH (09:00)
--- NOTE | 2018-05-16 10:09 | Surgery Progress Note ---
Date of Service May 16, 2018 Assessment & Plan (1) Perianal abscess: POD # 1 s/p incision and drainage of perirectal abscess - vitals stable, afebrile - pain controlled - Hyperglycemia 379--> 221 , HgA1c 10.2 Plan: Discharge home this afternoon Discharge instructions reviewed with pt, keep packing present until Saturday. F/u surgical office Saturday Rx for Percocet prn pain and Bactrim x 10 days Will speak with pharmacy in regards to needing Insulin on top of his home Metformin (Per Dr. Reyes). Will need close follow-up with PCP. Dr. Munoz has seen and examined pt, agrees with above. Subjective feeling better pain improved, controlled preop pain resolved no n/v Physical Exam Vital Signs (Past 24 Hours): Last Vital Signs Temp 37 C 05/16/18 08:03 Pulse 74 05/16/18 08:03 Resp 16 05/16/18 08:03 BP 118/60 05/16/18 08:03 Pulse Ox 95 05/16/18 08:03 Constitutional: WD/WN, vitals as above no acute distress Respiratory: normal respiratory effort; no respiratory distress Gastrointestinal (Abdomen): External Rectal exam: Wound covered with dressing, removed and bloody drainage present. Wound without induration or erythema. Packing present. tender to palpation. Skin: no rashes, warm and dry Psychiatric: A+Ox3, euthymic affect Results & Data Laboratory Results 05/16/18 05/16/18 05/16/18 Range/Units 08:14 06:34 06:06 WBC (4.8-10.8) K/uL RBC (4.7-6.1) M/uL Hgb (14.0-18.0) g/dL POC Hgb (14.0-18.0) g/dl Hct (42-52) % POC Hct (42-52) % MCV (80-100) fL MCH (25-34) pg MCHC (32-36) g/dL RDW Std Deviation (36.4-46.3) fL RDW Coeff of Mahi (11.5-14.5) % Plt Count (130-400) K/uL MPV (7.4-10.4) fL Immature Gran % (Auto) % Neut % (Auto) % Lymph % (Auto) % [place] % (Auto) % Eos % (Auto) % Baso % (Auto) % Immature Gran # (Auto) (0.00-0.02) K/uL Neut # (Auto) (1.4-6.5) K/uL Lymph # (Auto) (1.2-3.4) K/uL [place] # (Auto) (0.11-0.59) K/uL Eos # (Auto) (0-0.5) K/uL Baso # (Auto) (0-0.2) K/uL PT 10.3 (9.0-12.0) Seconds INR 1.0 (0.9-1.1) POC Sodium (135-144) mEq/L Sodium (136-145) mmol/L POC Potassium (3.3-5.0) mEq/L Potassium (3.5-5.1) mmol/L POC Chloride (101-112) mEq/L Chloride (98-107) mmol/L Carbon Dioxide (21-32) mmol/L POC Total CO2 (24-31) mEq/l Anion Gap (3-11) POC Anion Gap (16-25) mmol/L POC BUN (7-18) mg/dl BUN (7-18) mg/dl Creatinine (0.6-1.4) mg/dl POC Creatinine (0.6-1.3) mg/dl Est Cr Clr Drug Dosing ml/min Est GFR ( Amer) Est GFR (Non-Af Amer) BUN/Creatinine Ratio (10-20) Glucose (70-99) mg/dl POC Glucose 236 H (70-99) POC Glucose (other) (70-99) mg/dl Estimat Average Glucose 246 mg/dl Hemoglobin A1c 10.2 H (4.5-5.6) % Calcium (8.5-10.1) mg/dl POC Ioniz Calcium [place] (1.12-1.32) mmol/l Total Bilirubin (0.2-1) mg/dl AST (15-37) U/L ALT (12-78) U/L Alkaline Phosphatase (45-117) U/L Total Protein (6.4-8.2) gm/dl Albumin (3.4-5.0) gm/dl Globulin (2.5-4.0) gm/dl Albumin/Globulin Ratio (0.9-2) Lipase (73-393) U/L Beta-Hydroxybutyric Acd (0.2-2.81) mg/dl Urine Color Urine Appearance (Clear) Urine pH (4.5-7.5) POC Urine pH (4.5-7.5) Ur Specific [place] (1.000-1.030) Urine Protein (Negative) POC Urine Protein (Negative) Urine Glucose (UA) (Negative) POC Ur Glucose (UA) (Normal) Urine Ketones (Negative) POC Urine Ketones (Negative) Urine Blood (Negative) POC Urine Blood (Negative) Urine Nitrite (Negative) POC Urine Nitrite (Negative) Urine Bilirubin (Negative) POC Urine Bilirubin (Negative) Urine Urobilinogen (Negative) POC Urine Urobilinogen (Normal) Ur Leukocyte Esterase (Negative) POC U Leukocyte Esteras (Negative) 05/16/18 05/16/18 05/16/18 Range/Units 06:06 06:06 04:49 WBC 5.43 (4.8-10.8) K/uL RBC 4.05 L (4.7-6.1) M/uL Hgb 12.6 L (14.0-18.0) g/dL POC Hgb (14.0-18.0) g/dl Hct 35.8 L (42-52) % POC Hct (42-52) % MCV 88.4 (80-100) fL MCH 31.1 (25-34) pg MCHC 35.2 (32-36) g/dL RDW Std Deviation 42.8 (36.4-46.3) fL RDW Coeff of Mahi 13.3 (11.5-14.5) % Plt Count 135 (130-400) K/uL MPV 9.9 (7.4-10.4) fL Immature Gran % (Auto) 0.4 % Neut % (Auto) 62.2 % Lymph % (Auto) 29.5 % [place] % (Auto) 6.8 % Eos % (Auto) 0.9 % Baso % (Auto) 0.2 % Immature Gran # (Auto) 0.02 (0.00-0.02) K/uL Neut # (Auto) 3.38 (1.4-6.5) K/uL Lymph # (Auto) 1.60 (1.2-3.4) K/uL [place] # (Auto) 0.37 (0.11-0.59) K/uL Eos # (Auto) 0.05 (0-0.5) K/uL Baso # (Auto) 0.01 (0-0.2) K/uL PT (9.0-12.0) Seconds INR (0.9-1.1) POC Sodium (135-144) mEq/L Sodium 138 (136-145) mmol/L POC Potassium (3.3-5.0) mEq/L Potassium 3.8 (3.5-5.1) mmol/L POC Chloride (101-112) mEq/L Chloride 108 H (98-107) mmol/L Carbon Dioxide 28 (21-32) mmol/L POC Total CO2 (24-31) mEq/l Anion Gap 2.0 L (3-11) POC Anion Gap (16-25) mmol/L POC BUN (7-18) mg/dl BUN 11 (7-18) mg/dl Creatinine 1.10 (0.6-1.4) mg/dl POC Creatinine (0.6-1.3) mg/dl Est Cr Clr Drug Dosing 123.9 ml/min Est GFR ( Amer) 98.2 Est GFR (Non-Af Amer) 84.7 BUN/Creatinine Ratio 10.1 (10-20) Glucose 331 H (70-99) mg/dl POC Glucose 379 H* (70-99) POC Glucose (other) (70-99) mg/dl Estimat Average Glucose mg/dl Hemoglobin A1c (4.5-5.6) % Calcium 7.9 L (8.5-10.1) mg/dl POC Ioniz Calcium [place] (1.12-1.32) mmol/l Total Bilirubin 0.6 (0.2-1) mg/dl AST 9 L (15-37) U/L ALT 38 (12-78) U/L Alkaline Phosphatase 92 (45-117) U/L Total Protein 6.3 L D (6.4-8.2) gm/dl Albumin 3.2 L (3.4-5.0) gm/dl Globulin 3.1 (2.5-4.0) gm/dl Albumin/Globulin Ratio 1.0 (0.9-2) Lipase (73-393) U/L Beta-Hydroxybutyric Acd 1.03 (0.2-2.81) mg/dl Urine Color Urine Appearance (Clear) Urine pH (4.5-7.5) POC Urine pH (4.5-7.5) Ur Specific [place] (1.000-1.030) Urine Protein (Negative) POC Urine Protein (Negative) Urine Glucose (UA) (Negative) POC Ur Glucose (UA) (Normal) Urine Ketones (Negative) POC Urine Ketones (Negative) Urine Blood (Negative) POC Urine Blood (Negative) Urine Nitrite (Negative) POC Urine Nitrite (Negative) Urine Bilirubin (Negative) POC Urine Bilirubin (Negative) Urine Urobilinogen (Negative) POC Urine Urobilinogen (Normal) Ur Leukocyte Esterase (Negative) POC U Leukocyte Esteras (Negative) 05/15/18 05/15/18 05/15/18 Range/Units 23:48 21:36 20:54 WBC (4.8-10.8) K/uL RBC (4.7-6.1) M/uL Hgb (14.0-18.0) g/dL POC Hgb (14.0-18.0) g/dl Hct (42-52) % POC Hct (42-52) % MCV (80-100) fL MCH (25-34) pg MCHC (32-36) g/dL RDW Std Deviation (36.4-46.3) fL RDW Coeff of Mahi (11.5-14.5) % Plt Count (130-400) K/uL MPV (7.4-10.4) fL Immature Gran % (Auto) % Neut % (Auto) % Lymph % (Auto) % [place] % (Auto) % Eos % (Auto) % Baso % (Auto) % Immature Gran # (Auto) (0.00-0.02) K/uL Neut # (Auto) (1.4-6.5) K/uL Lymph # (Auto) (1.2-3.4) K/uL [place] # (Auto) (0.11-0.59) K/uL Eos # (Auto) (0-0.5) K/uL Baso # (Auto) (0-0.2) K/uL PT (9.0-12.0) Seconds INR (0.9-1.1) POC Sodium (135-144) mEq/L Sodium (136-145) mmol/L POC Potassium (3.3-5.0) mEq/L Potassium (3.5-5.1) mmol/L POC Chloride (101-112) mEq/L Chloride (98-107) mmol/L Carbon Dioxide (21-32) mmol/L POC Total CO2 (24-31) mEq/l Anion Gap (3-11) POC Anion Gap (16-25) mmol/L POC BUN (7-18) mg/dl BUN (7-18) mg/dl Creatinine (0.6-1.4) mg/dl POC Creatinine (0.6-1.3) mg/dl Est Cr Clr Drug Dosing ml/min Est GFR ( Amer) Est GFR (Non-Af Amer) BUN/Creatinine Ratio (10-20) Glucose (70-99) mg/dl POC Glucose 255 H 265 H 277 H (70-99) POC Glucose (other) (70-99) mg/dl Estimat Average Glucose mg/dl Hemoglobin A1c (4.5-5.6) % Calcium (8.5-10.1) mg/dl POC Ioniz Calcium [place] (1.12-1.32) mmol/l Total Bilirubin (0.2-1) mg/dl AST (15-37) U/L ALT (12-78) U/L Alkaline Phosphatase (45-117) U/L Total Protein (6.4-8.2) gm/dl Albumin (3.4-5.0) gm/dl Globulin (2.5-4.0) gm/dl Albumin/Globulin Ratio (0.9-2) Lipase (73-393) U/L Beta-Hydroxybutyric Acd (0.2-2.81) mg/dl Urine Color Urine Appearance (Clear) Urine pH (4.5-7.5) POC Urine pH (4.5-7.5) Ur Specific [place] (1.000-1.030) Urine Protein (Negative) POC Urine Protein (Negative) Urine Glucose (UA) (Negative) POC Ur Glucose (UA) (Normal) Urine Ketones (Negative) POC Urine Ketones (Negative) Urine Blood (Negative) POC Urine Blood (Negative) Urine Nitrite (Negative) POC Urine Nitrite (Negative) Urine Bilirubin (Negative) POC Urine Bilirubin (Negative) Urine Urobilinogen (Negative) POC Urine Urobilinogen (Normal) Ur Leukocyte Esterase (Negative) POC U Leukocyte Esteras (Negative) 05/15/18 05/15/18 05/15/18 Range/Units 19:53 19:53 19:42 WBC (4.8-10.8) K/uL RBC (4.7-6.1) M/uL Hgb (14.0-18.0) g/dL POC Hgb 14.6 (14.0-18.0) g/dl Hct (42-52) % POC Hct 43 (42-52) % MCV (80-100) fL MCH (25-34) pg MCHC (32-36) g/dL RDW Std Deviation (36.4-46.3) fL RDW Coeff of Mahi (11.5-14.5) % Plt Count (130-400) K/uL MPV (7.4-10.4) fL Immature Gran % (Auto) % Neut % (Auto) % Lymph % (Auto) % [place] % (Auto) % Eos % (Auto) % Baso % (Auto) % Immature Gran # (Auto) (0.00-0.02) K/uL Neut # (Auto) (1.4-6.5) K/uL Lymph # (Auto) (1.2-3.4) K/uL [place] # (Auto) (0.11-0.59) K/uL Eos # (Auto) (0-0.5) K/uL Baso # (Auto) (0-0.2) K/uL PT (9.0-12.0) Seconds INR (0.9-1.1) POC Sodium 137 (135-144) mEq/L Sodium (136-145) mmol/L POC Potassium 3.9 (3.3-5.0) mEq/L Potassium (3.5-5.1) mmol/L POC Chloride 100 L (101-112) mEq/L Chloride (98-107) mmol/L Carbon Dioxide (21-32) mmol/L POC Total CO2 24 (24-31) mEq/l Anion Gap (3-11) POC Anion Gap 18.0 (16-25) mmol/L POC BUN 15 (7-18) mg/dl BUN (7-18) mg/dl Creatinine (0.6-1.4) mg/dl POC Creatinine 0.8 (0.6-1.3) mg/dl Est Cr Clr Drug Dosing ml/min Est GFR ( Amer) Est GFR (Non-Af Amer) BUN/Creatinine Ratio (10-20) Glucose (70-99) mg/dl POC Glucose (70-99) POC Glucose (other) 357 H* (70-99) mg/dl Estimat Average Glucose mg/dl Hemoglobin A1c (4.5-5.6) % Calcium (8.5-10.1) mg/dl POC Ioniz Calcium [place] 1.20 (1.12-1.32) mmol/l Total Bilirubin (0.2-1) mg/dl AST (15-37) U/L ALT (12-78) U/L Alkaline Phosphatase (45-117) U/L Total Protein (6.4-8.2) gm/dl Albumin (3.4-5.0) gm/dl Globulin (2.5-4.0) gm/dl Albumin/Globulin Ratio (0.9-2) Lipase (73-393) U/L Beta-Hydroxybutyric Acd (0.2-2.81) mg/dl Urine Color Yellow Urine Appearance Clear (Clear) Urine pH 5.0 (4.5-7.5) POC Urine pH 5 (4.5-7.5) Ur Specific [place] 1.036 H (1.000-1.030) Urine Protein Negative (Negative) POC Urine Protein Negative (Negative) Urine Glucose (UA) 3+ H (Negative) POC Ur Glucose (UA) 1000 H (Normal) Urine Ketones Trace H (Negative) POC Urine Ketones Negative (Negative) Urine Blood Negative (Negative) POC Urine Blood Negative (Negative) Urine Nitrite Negative (Negative) POC Urine Nitrite Negative (Negative) Urine Bilirubin Negative (Negative) POC Urine Bilirubin Negative (Negative) Urine Urobilinogen Negative (Negative) POC Urine Urobilinogen Normal (Normal) Ur Leukocyte Esterase Negative (Negative) POC U Leukocyte Esteras Negative (Negative) 05/15/18 05/15/18 Range/Units 19:35 19:35 WBC 7.42 (4.8-10.8) K/uL RBC 4.73 (4.7-6.1) M/uL Hgb 15.1 (14.0-18.0) g/dL POC Hgb (14.0-18.0) g/dl Hct 41.7 L (42-52) % POC Hct (42-52) % MCV 88.2 (80-100) fL MCH 31.9 (25-34) pg MCHC 36.2 H (32-36) g/dL RDW Std Deviation 42.1 (36.4-46.3) fL RDW Coeff of Mahi 13.1 (11.5-14.5) % Plt Count 161 (130-400) K/uL MPV 10.2 (7.4-10.4) fL Immature Gran % (Auto) 0.3 % Neut % (Auto) 72.1 % Lymph % (Auto) 19.9 % [place] % (Auto) 7.1 % Eos % (Auto) 0.5 % Baso % (Auto) 0.1 % Immature Gran # (Auto) 0.02 (0.00-0.02) K/uL Neut # (Auto) 5.34 (1.4-6.5) K/uL Lymph # (Auto) 1.48 (1.2-3.4) K/uL [place] # (Auto) 0.53 (0.11-0.59) K/uL Eos # (Auto) 0.04 (0-0.5) K/uL Baso # (Auto) 0.01 (0-0.2) K/uL PT (9.0-12.0) Seconds INR (0.9-1.1) POC Sodium (135-144) mEq/L Sodium 133 L (136-145) mmol/L POC Potassium (3.3-5.0) mEq/L Potassium 3.8 (3.5-5.1) mmol/L POC Chloride (101-112) mEq/L Chloride 102 (98-107) mmol/L Carbon Dioxide 28 (21-32) mmol/L POC Total CO2 (24-31) mEq/l Anion Gap 3.0 (3-11) POC Anion Gap (16-25) mmol/L POC BUN (7-18) mg/dl BUN 14 (7-18) mg/dl Creatinine 1.10 (0.6-1.4) mg/dl POC Creatinine (0.6-1.3) mg/dl Est Cr Clr Drug Dosing 123.4 ml/min Est GFR ( Amer) 98.2 Est GFR (Non-Af Amer) 84.7 BUN/Creatinine Ratio 13.0 (10-20) Glucose 364 H* (70-99) mg/dl POC Glucose (70-99) POC Glucose (other) (70-99) mg/dl Estimat Average Glucose mg/dl Hemoglobin A1c (4.5-5.6) % Calcium 8.8 (8.5-10.1) mg/dl POC Ioniz Calcium [place] (1.12-1.32) mmol/l Total Bilirubin 0.7 (0.2-1) mg/dl AST 16 (15-37) U/L ALT 54 (12-78) U/L Alkaline Phosphatase 136 H (45-117) U/L Total Protein 8.1 (6.4-8.2) gm/dl Albumin 4.2 (3.4-5.0) gm/dl Globulin 3.9 (2.5-4.0) gm/dl Albumin/Globulin Ratio 1.1 (0.9-2) Lipase 140 (73-393) U/L Beta-Hydroxybutyric Acd 1.57 (0.2-2.81) mg/dl Urine Color Urine Appearance (Clear) Urine pH (4.5-7.5) POC Urine pH (4.5-7.5) Ur Specific [place] (1.000-1.030) Urine Protein (Negative) POC Urine Protein (Negative) Urine Glucose (UA) (Negative) POC Ur Glucose (UA) (Normal) Urine Ketones (Negative) POC Urine Ketones (Negative) Urine Blood (Negative) POC Urine Blood (Negative) Urine Nitrite (Negative) POC Urine Nitrite (Negative) Urine Bilirubin (Negative) POC Urine Bilirubin (Negative) Urine Urobilinogen (Negative) POC Urine Urobilinogen (Normal) Ur Leukocyte Esterase (Negative) POC U Leukocyte Esteras (Negative)
--- NOTE | 2018-05-16 10:13 | Pharmacy Report ---
Glycemic Control Consultation - Date of Service May 16, 2018 - Scope Scope: Glycemic Pharmacist consulted by Dr Huggins on 05/16/18 for glycemic control and to write orders per [facility] inpatient glycemic control protocol - Objective Weight: 120.7 kg Accuchecks BSG (last 24hrs): 05/15/18 05/15/18 05/15/18 19:35 19:42 20:54 Glucose 364 H* POC Glucose 277 H POC Glucose (other) 357 H* 05/15/18 05/15/18 05/16/18 21:36 23:48 04:49 Glucose POC Glucose 265 H 255 H 379 H* POC Glucose (other) 05/16/18 05/16/18 06:06 08:14 Glucose 331 H POC Glucose 236 H POC Glucose (other) Laboratory Data (last 24hrs): 05/15/18 05/16/18 19:35 06:06 Potassium 3.8 3.8 Carbon Dioxide 28 28 Anion Gap 3.0 2.0 L Creatinine 1.10 1.10 Est Cr Clr Drug Dosing 123.4 123.9 Beta-Hydroxybutyric Acd 1.57 1.03 HbA1c: Hemoglobin A1c 10.2 % (4.5-5.6) H 05/16/18 06:06 - Recent Pertinent Medications Outpatient Anti-diabetic Regimen: * Metformin 1 gram PO AM; 500mg PO PM * A1c = 10.2 % 05/16/18 Risk Factors for Insulin Resistance: * Recent Surgery: POD 1 perianal fistula I&D and packing * Diet: Type 2 DM - Assessment & Plan Assessment & Plan: ASSESSMENT: * 37-year-old male with a past medical history of diabetes, perianal fistula, obesity, hypertension, hyperlipidemia, hypothyroidism, gout, and melanoma. POD 1 I&D and packing of perianal fistual. * Patient hyperglycemic d/t uncontrolled DM as outpatient. * Pharmacy received consult late last night, overnight pharmacist gave patient 3 units IV insulin and Lantus 20 units x1 dose. * Blood sugars coming down into 200s. Will tighten CF and CR further once lunch blood sugar evaluated. * ADA & AACE recommend a goal blood sugar range 140-180 mg/dl for the majority of critically ill & non-critically ill patients. However, more stringent targets may be selected in individual cases. Will utilize more stringent goal of 110-140mg/dl based on patient age & comorbidities. Additionally, tighter glycemic control is warranted to facilitate wound/infection healing. * Pt is maintained on oral antidiabetic agents as an outpatient * Oral agents are not recommended for inpatient use d/t drug interactions, changing PO intake, and difficulty titrating for acute hyper/hypoglycemia. ADA recommends re-initiating outpatient oral agents 1-2 days prior to discharge if/when appropriate if they were held on admission. * Will hold oral agents for admission and utilize SQ basal bolus insulin regimen which is the recommended regimen for inpatient glycemic control. * Will initiate weight based insulin dosing for insulin tushar patient and titrate based on BSG trends. PLAN FOR INPATIENT GLYCEMIC CONTROL: * Holding outpatient oral diabetes medications * Basal insulin * Lantus 20 units SQ x 1 dose this morning * Bolus insulin * NovoLog per scale ACHS or Q6hrs while NPO * Goal Range: Low 110 mg/dL - High 140 mg/dL * Correction Factor: 20 mg/dL/unit * Nutritional / Prandial insulin per carb ratio of 1 unit per 7 grams CHO consumed DISCHARGE RECOMMENDATIONS: * A1c 10.2% - patient uncontrolled on Metformin - recommend starting Lantus 20 units SQ daily and titrated up every 2-3 days based on fasting blood sugar. * Please note that the plan above was derived based on current level of insulin resistance and hospital stress. These recommendations are appropriate for inpatient admission only. Plan of care upon discharge will need to be reassessed to avoid potential outpatient hypo/hyperglycemia. Thank you.
--- NOTE | 2018-05-19 09:51 | Discharge Summary ---
Date of Service May 19, 2018 Admission HPI Per Admitting Provider pt is a 37 year old male who presents to ER with 3 days history rectal pain, pt denies rectal bleeding, or abdominal pain, no fever, pt had anal fistulotomy by colorectal surgeon one month ago, pt had CT scan at ER today dx joanie-rectal abscess, Principal Diagnosis Perirectal abscess Discharge Exam Constitutional WD/WN, vitals as above no acute distress Respiratory normal respiratory effort; no respiratory distress Skin no rashes, warm and dry Psychiatric A+Ox3, euthymic affect Discharge Data Allergies Allergy/AdvReac Type Severity Reaction Status Date / Time No Known Allergies Allergy Verified 05/15/18 21:24 Consultations 05/15/18 21:20 Consult General Surgery Stat 05/15/18 23:44 Consult Hospitalist Routine Procedures Performed Operation Date: 05/15/18 22:05 Actual Procedures p Incision and Drainage Joanie-Rectal Abscess - Mik Munoz MD Ordered Studies 05/15/18 18:51 CT pelvis w/IV con only Stat Hospital Course (1) Perianal abscess: Patient was taken to operating room for incision and drainage of perirectal abscess by Dr. Munoz. Patient was found to have 2-3 cm perirectal abscess. Patient tolerated procedure well and was transferred to medical/surgical floor for post op care. He was started on regular diet, IV Cirp/flagyl, Pain medicaiton as needed, activity as tolerated, SCDs. Patient evaluated POD # 1, vitals stable, afebrile, pain controlled, hyperglycemia 379--> 221 , HgA1c 10.2. Patients pain controlled and was ready for discharge. He was discharged home with pain medication, 10 days of Bactrim, and 20 units of Insulin sq daily. Follow-up with PCP in 1 week. Total Time Total Time Spent Total Time Spent (In Minutes): 1 hour Total Time Includes: Examination of the Patient, Discharge Planning, Medication Reconciliation and Communication With Other Providers Discharge Plan Discharge Items Patient Disposition: Home - Self-Care Reason For Visit: JOANIE-ANAL ABSCESS Discharge Diagnosis: Same Elevated blood glucose and Hemoglobin A1c Discharge Goals: Decrease discomfort and Improve function Activity: Per 'Additional Instructions' section Non-emergency contact: Surgeon Call non-emergency contact if: your symptoms worsen, your pain is not controlled, your pain is worsening, your pain is concerning for you, you have a fever, your temperature is above 101, your wound has increased redness, your wound has increased drainage and your wound pain has increased Follow-up/Referrals: Nabil Arizmendi [Primary Care Provider] - Diet: Carb Consistent or DM2 Addtl Provider Instructions: No strenuous activity until seen in surgical office and cleared Keep dressing on and change daily or as needed to keep clean and dry. Leave packing in place. Will be removed in surgical office on Saturday. If packing falls out, that is okay. Place Bacitracin into the wound and cover with gauze. You may shower. Try to keep packing in place. You will be given prescription for narcotic pain medication (Percocet) as needed for moderate to severe pain. Take as directed however try to limit as narcotics can cause constipation. May take extra strength Tylenol or Ibuprofen if you are only having mild pain. Recommend stool softener (Colace) while taking pain medication daily or twice a day. To avoid constipation: Recommend increasing fiber in your diet (fruits and vegetables), may take fiber supplement daily such as Benefiber or Metamucil, increase water intake, and daily walking . Follow-up in surgical office Saturday05/19/2018 for wound check and packing removal. Take antibiotics as prescribed. You will need to follow-up with your PCP in one week given your elevated blood sugars and HgA1c. We are starting you on Insulin 20 units daily. Please monitor your blood sugars at home. Call surgical office at [phone] to make an appointment. Prescriptions: New oxycodone-acetaminophen [Percocet] 5-325 mg Tablet 1 tab PO Q6H PRN (Reason: pain) Qty: 12 RF: 0 sulfamethoxazole-trimethoprim 800-160 mg tablet 1 tab PO Q12H Qty: 20 RF: 0 Lantus Solostar U-100 Insulin 100 unit/mL (3 mL) insulin pen 20 units SQ DAILY Qty: 15 RF: 0 pen needle, diabetic [Sure-Fine Pen [place]] 29 gauge x 1/2" needle .ROUTE .MEDSUPPLY Qty: 30 RF: 0 Continued losartan 50 mg tablet 50 mg PO DAILY RF: 0 atorvastatin 10 mg tablet 10 mg PO DAILY RF: 0 levothyroxine 125 mcg tablet 125 mcg PO DAILY RF: 0 allopurinol 300 mg tablet 300 mg PO DAILY RF: 0 metformin 500 mg tablet extended release 24 hr 1,000 mg PO QAM RF: 0 metformin 500 mg tablet extended release 24 hr 500 mg PO QPM RF: 0 sertraline 50 mg tablet 50 mg PO DAILY RF: 0 vitamin E 400 unit Capsule 400 units PO DAILY RF: 0 cholecalciferol (vitamin D3) [Vitamin D3] 1,000 unit Capsule 1 dose PO DAILY RF: 0 Visit Report Forms: Smoking Cessation Stand-Alone Forms: [facility], [facility], Work/School Release (Inpt) Discharge Orders: Discharge Order (Routine); Ordered 05/16/18 Ordered By: Natalya Newsome Admission Data Admit Date/Time: 05/15/18 23:41 Attending Provider: Mik Munoz Admit Provider: Mik Munoz Primary Care Provider: Nabil Arizmendi Other Providers: Mik Munoz ; Cade Reyes Service: Surgical Services Other Interventions: Discharge Summary Assessment (RN) Last Done: 05/16/18 10:39 Pending Studies at Discharge: Yes (wound culture results) DC Date/Time DO NOT enter until pt leaves facility: 05/16/18 14:50
== END 2018-05-16 14:50 | disposition home or self-care (01) ==
LOC: ED 17:44 → 3N 22:43 → OR 22:43
DX: K61.0 Anal abscess; I10 Essential (primary) hypertension; E11.9 Type 2 diabetes mellitus without complications; Z68.35 Body mass index [BMI] 35.0-35.9, adult; E03.9 Hypothyroidism, unspecified; E66.9 Obesity, unspecified